=== PATIENT | female | born 1980 | race Caucasian/White ===

== ENCOUNTER 2017-11-08 18:28 | Emergency (ER) | payer OTHER, SELFPAY ==
[2017-11-08] MEDS ORDERED: Ketorolac Tromethamine 60 MG/2 ML VIAL ONE (21:06)
--- NOTE | 2017-11-08 21:46 | RAD ---
RADIOGRAPH LEFT HAND 3 VIEWS: 11/08/17 HISTORY: 37-year-old female with traumatic pain of the left hand after fall. FINDINGS: There is no dislocation, and no evidence of fracture, or any other osseous abnormality. IMPRESSION: Normal. POS: JIN
--- NOTE | 2017-11-08 21:47 | RAD ---
RADIOGRAPH LEFT ANKLE 3 VIEWS: 11/08/17 HISTORY: 37-year-old female with traumatic left ankle pain. FINDINGS: There is lateral, and to a lesser degree anterior and posterior, soft tissue swelling. Ankle mortise is symmetrical. There is no fracture. Talar dome is maintained. IMPRESSION: 1. No fracture. 2. Traumatic soft tissue edema. POS: JIN
--- NOTE | 2017-11-08 21:48 | RAD ---
RADIOGRAPH LEFT LEG TIBIA AND FIBULA 2 VIEWS: 11/08/17 HISTORY: 37-year-old female status post acute traumatic injury to the left leg. FINDINGS: The tibia and fibula have no fracture or any other osseous abnormality. IMPRESSION: Normal. POS: JIN
--- NOTE | 2017-11-08 21:49 | RAD ---
RADIOGRAPH RIGHT HIP 2 VIEWS: 11/08/17 HISTORY: 37-year-old female with traumatic right hip pain after fall. FINDINGS: There is no fracture, dislocation, or any other major osseous abnormality. IMPRESSION: Negative. POS: JIN
== END 2017-11-08 22:14 | disposition home or self-care (01) ==
LOC: ERS 18:28
DX: M25.572 Pain in left ankle and joints of left foot (principal); M79.642 Pain in left hand; M25.551 Pain in right hip; E11.42 Type 2 diabetes mellitus with diabetic polyneuropathy; I10 Essential (primary) hypertension; K21.9 Gastro-esophageal reflux disease without esophagitis; G43.909 Migraine, unspecified, not intractable, without status migrainosus; F32.9 Major depressive disorder, single episode, unspecified; F41.9 Anxiety disorder, unspecified; Z79.84 Long term (current) use of oral hypoglycemic drugs; Z79.899 Other long term (current) drug therapy; W10.9XXA Fall (on) (from) unspecified stairs and steps, initial encounter
CPT/HCPCS: 96372; J1885